=== PATIENT | male | born 1970 | race Hispanic/Latino ===

== ENCOUNTER 2021-04-12 15:08 | Inpatient (IN) | payer OTHER, SELFPAY ==
[~2021-04-12 15:08] MED LIST: Iopamidol-370 76% 500 ML 1 ML ONE
[2021-04-12 15:57] LABS: #Basophils 0.1 thou/uL (0.0-0.2); #Lymphocytes 1.4 thou/uL (1.20-3.40); #Monocytes 1.3 thou/uL (0.11-0.59); #Neutrophils 10.3 thou/uL (1.40-6.50); %Basophils 0.6 % (0.0-1.0); %Eosinophils 0.2 % (0.0-10.0); %Lymphocytes 10.6 % (21.0-51.0); %Monocytes 10.1 % (0.0-10.0); %Neutrophils 78.5 % (42.0-75.0); Hemoglobin 15.3 g/dL (14.0-18.0); Mean Corpuscular HGB CONC 34.4 g/dL (32.0-36.0); Mean Platelet Volume 7.8 fL (7.4-10.4); Platelet Count 242 thou/uL (130-400); RBC Distribution Width 11.9 % (11.5-14.5); Red Blood Cell (RBC) Count 4.93 mill/uL (4.70-6.10); White Blood Cell (WBC) Count 13.1 thou/uL (4.8-10.8)
[2021-04-12 16:18] LABS: ALT (SGPT) 26 U/L (8-55); AST (SGOT) 16 U/L (5-34); Albumin 3.9 g/dL (3.5-5.0); Alkaline Phosphatase 83 U/L (40-110); Anion Gap 16 mmol/L (10-20); BUN (Urea Nitrogen) 15 mg/dL (8.4-25.7); Bilirubin, Total 2.1 mg/dL (0.2-1.2); Calc. Creatinine Clearance 0 mL/min (70-130); Calcium 9.1 mg/dL (7.8-10.44); Carbon Dioxide 25 mmol/L (22-29); Chloride 88 mmol/L (98-107); Globulin 3.7 g/dL (2.4-3.5); Glucose 364 mg/dL (70-105); Potassium 3.6 mmol/L (3.5-5.1); Protein, Total 7.6 g/dL (6.0-8.3); Sodium 125 mmol/L (136-145)
[2021-04-12] MEDS ORDERED: Piperacillin/Tazobactam 3.375 GM VIAL ONE (16:25)
[2021-04-12] MEDS ORDERED: Vancomycin 1 GM/200 ML BAG ONE (18:10)
[2021-04-12 18:28] LABS: Bilirubin Negative (Negative); Blood, Urine Small (Negative); Glucose, Urine (Dipstick) 500 mg/dL (Negative); Ketone, Urine Negative (Negative); Leukocyte Negative (Negative); Nitrite Negative (Negative); Protein, Urine (Dipstick) Negative (Neg-Trace)
[2021-04-12 18:30] LABS: Clarity Clear (Clear)
[2021-04-12 18:31] LABS: Specific Gravity, Urine 1.052 (1.002-1.036)
[2021-04-12 18:32] LABS: Bacteria/HPF None Seen HPF (None Seen); RBC/HPF 0-3 HPF (0-3); Squamous Epithelial None Seen HPF (0-3); WBC/HPF 0-3 HPF (0-3)
[2021-04-12 19:27] LABS: Lactic Acid 1.3 mmol/L (0.5-2.2)
[2021-04-12] MEDS ORDERED: Acetaminophen 500 MG TAB ONE (19:40)
[2021-04-12] MEDS ORDERED: Dextrose 50% Abboject 50 ML SYRINGE SLOW IVP PRN (23:42)
[2021-04-12] MEDS ORDERED: Dextrose 5% in Water 1,000 ML IV PRN (23:42)
[2021-04-13 00:17] VITALS: BMI 36.1
[2021-04-13] MEDS: HumaLOG 300 UNITS/3 ML VIAL SC PRN ×5 (01:17→22:00)
[2021-04-13] MEDS ORDERED: Ondansetron ODT 4 MG TAB PO PRN (02:57)
[2021-04-13] MEDS ORDERED: HYDROcodone/Acetaminophen 5/325 mg Tablet PO PRN (02:57)
[2021-04-13] MEDS ORDERED: Ondansetron PF 4 MG/2 ML Vial IVP PRN (02:57)
[2021-04-13] MEDS ORDERED: Morphine 2 MG/ML VIAL SLOW IVP PRN (03:01)
[2021-04-13] MEDS: Sodium Chloride 0.9% 1,000 ML IV SCH ×3 (03:46→23:08)
[2021-04-13] MEDS: Piperacillin/Tazobactam 4.5 GM in Sodium Chloride 0.9% 100 ML IVPB SCH ×3 (03:47→22:24)
[2021-04-13] MEDS: Vancomycin 1.5 GRAM/300 ML BAG 1.5 GM in Premix Bag 1 BAG IVPB SCH ×2 (05:00→17:35)
[2021-04-13 05:54] LABS: #Eosinphils 0.1 thou/uL (0.0-0.7); #Lymphocytes 1.7 thou/uL (1.20-3.40); #Monocytes 1.8 thou/uL (0.11-0.59); #Neutrophils 10.3 thou/uL (1.40-6.50); %Basophils 0.2 % (0.0-1.0); %Eosinophils 0.8 % (0.0-10.0); %Lymphocytes 12.1 % (21.0-51.0); %Monocytes 12.7 % (0.0-10.0); %Neutrophils 74.2 % (42.0-75.0); Hemoglobin 13.9 g/dL (14.0-18.0); Mean Corpuscular HGB CONC 33.7 g/dL (32.0-36.0); Mean Corpuscular Hemoglobin 30.6 pg (27.0-31.0); Mean Corpuscular Volume 91.1 fL (78.0-98.0); Mean Platelet Volume 7.9 fL (7.4-10.4); Platelet Count 243 thou/uL (130-400); RBC Distribution Width 11.9 % (11.5-14.5); Red Blood Cell (RBC) Count 4.53 mill/uL (4.70-6.10); White Blood Cell (WBC) Count 13.9 thou/uL (4.8-10.8)
[2021-04-13 06:19] LABS: Anion Gap 12 mmol/L (10-20); BUN (Urea Nitrogen) 11 mg/dL (8.4-25.7); Calc. Creatinine Clearance 131 mL/min (70-130); Calcium 8.6 mg/dL (7.8-10.44); Carbon Dioxide 24 mmol/L (22-29); Chloride 96 mmol/L (98-107); Glucose 316 mg/dL (70-105); Potassium 4.1 mmol/L (3.5-5.1); Sodium 128 mmol/L (136-145)
[2021-04-13] MEDS ORDERED: Lidocaine 1% w/Epinephrine 1:100K 20 ML VIAL ONE (08:38)
[2021-04-13] MEDS ORDERED: Iopamidol 370 76% 100 ML VIAL ONE (10:14)
[2021-04-13 10:38] LABS: SARS-CoV-2 NAA Rapid Test DETECTED (NotDetected)
[2021-04-13] MEDS ORDERED: Piperacillin/Tazobactam 4.5 GM in Sodium Chloride 0.9% 100 ML IVPB SCH (20:00)
[2021-04-13] MEDS ORDERED: HumaLOG 300 UNITS/3 ML VIAL SC PRN (20:54)
[2021-04-14] MEDS: Piperacillin/Tazobactam 4.5 GM in Sodium Chloride 0.9% 100 ML IVPB SCH ×3 (05:08→21:34)
[2021-04-14] MEDS: Sodium Chloride 0.9% 1,000 ML IV SCH ×2 (05:15→18:35)
[2021-04-14] MEDS: Acetaminophen 325 MG TAB PO PRN ×2 (05:28→21:44)
[2021-04-14] MEDS: HumaLOG 300 UNITS/3 ML VIAL SC PRN ×3 (05:29→17:00)
[2021-04-14] MEDS: Vancomycin 1.5 GRAM/300 ML BAG 1.5 GM in Premix Bag 1 BAG IVPB SCH ×4 (06:38→23:05)
[2021-04-14] MEDS ORDERED: metFORMIN 500 MG TAB PO SCH (09:00)
[2021-04-14] MEDS: metFORMIN 500 MG TAB PO SCH (21:35)
[2021-04-15] MEDS: Piperacillin/Tazobactam 4.5 GM in Sodium Chloride 0.9% 100 ML IVPB SCH ×3 (05:37→22:18)
[2021-04-15] MEDS: Sodium Chloride 0.9% 1,000 ML IV SCH ×2 (05:38→16:41)
[2021-04-15] MEDS: HumaLOG 300 UNITS/3 ML VIAL SC PRN ×3 (05:38→16:38)
[2021-04-15 07:08] LABS: #Basophils 0.1 thou/uL (0.0-0.2); #Eosinphils 0.4 thou/uL (0.0-0.7); #Lymphocytes 1.5 thou/uL (1.20-3.40); #Monocytes 0.8 thou/uL (0.11-0.59); #Neutrophils 5.3 thou/uL (1.40-6.50); %Eosinophils 4.4 % (0.0-10.0); %Lymphocytes 18.7 % (21.0-51.0); %Monocytes 9.5 % (0.0-10.0); %Neutrophils 66.4 % (42.0-75.0); Hemoglobin 13.9 g/dL (14.0-18.0); Mean Corpuscular HGB CONC 34.4 g/dL (32.0-36.0); Mean Corpuscular Hemoglobin 31.8 pg (27.0-31.0); Mean Corpuscular Volume 92.4 fL (78.0-98.0); Mean Platelet Volume 7.8 fL (7.4-10.4); Platelet Count 271 thou/uL (130-400); Red Blood Cell (RBC) Count 4.37 mill/uL (4.70-6.10)
[2021-04-15 07:24] LABS: Vancomycin, Trough 15.3 ug/mL
[2021-04-15 07:27] LABS: Anion Gap 11 mmol/L (10-20); BUN (Urea Nitrogen) 8 mg/dL (8.4-25.7); Calc. Creatinine Clearance 151 mL/min (70-130); Calcium 8.6 mg/dL (7.8-10.44); Carbon Dioxide 22 mmol/L (22-29); Chloride 103 mmol/L (98-107); Glucose 269 mg/dL (70-105); Potassium 3.6 mmol/L (3.5-5.1); Sodium 132 mmol/L (136-145)
[2021-04-15] MEDS: Vancomycin 1.5 GRAM/300 ML BAG 1.5 GM in Premix Bag 1 BAG IVPB SCH ×3 (08:06→23:31)
[2021-04-15] MEDS: metFORMIN 500 MG TAB PO SCH ×2 (08:06→20:50)
[2021-04-15] MEDS: Enoxaparin Sodium 40 MG/0.4 ML SYRINGE SC SCH (08:07)
[2021-04-15] MEDS ORDERED: EPINEPHrine 1 MG/ML AMP ONE (17:30)
[2021-04-15] MEDS ORDERED: Bupivacaine 0.25% HCL 30 ML VIAL ONE (17:30)
[2021-04-15] MEDS ORDERED: Lidocaine 1% w/Epinephrine 1:100K 20 ML VIAL ONE (17:30)
[2021-04-16] MEDS: Sodium Chloride 0.9% 1,000 ML IV SCH ×2 (01:52→11:53)
[2021-04-16] MEDS: Piperacillin/Tazobactam 4.5 GM in Sodium Chloride 0.9% 100 ML IVPB SCH ×2 (05:16→14:18)
[2021-04-16] MEDS: HumaLOG 300 UNITS/3 ML VIAL SC PRN ×3 (05:16→16:14)
[2021-04-16 06:40] LABS: Hemoglobin 13.5 g/dL (14.0-18.0); Mean Corpuscular HGB CONC 33.8 g/dL (32.0-36.0); Mean Corpuscular Hemoglobin 30.9 pg (27.0-31.0); Mean Corpuscular Volume 91.5 fL (78.0-98.0); Mean Platelet Volume 7.6 fL (7.4-10.4); Platelet Count 313 thou/uL (130-400); RBC Distribution Width 11.9 % (11.5-14.5); Red Blood Cell (RBC) Count 4.38 mill/uL (4.70-6.10)
[2021-04-16] MEDS: Enoxaparin Sodium 40 MG/0.4 ML SYRINGE SC SCH (08:25)
[2021-04-16] MEDS: Vancomycin 1.5 GRAM/300 ML BAG 1.5 GM in Premix Bag 1 BAG IVPB SCH ×2 (08:25→16:14)
[2021-04-16] MEDS: metFORMIN 500 MG TAB PO SCH (08:25)
[2021-04-16] MEDS: Acetaminophen 325 MG TAB PO PRN (16:27)
[2021-04-16 20:44] VITALS: BP 151/77; TEMP 98
== END 2021-04-16 19:30 | disposition home or self-care (01) | DRG 853 ==
LOC: ERS 15:08 → SURG B 22:38 → T4-A 04-13 15:50
PROVIDERS: ADMIT Student in an Organized Health Care Education/Training Program; ATTEND Internal Medicine
PROC: 0J990ZZ Drainage of Buttock Subcutaneous Tissue and Fascia, Open Approach (ICD-10-PCS; principal; 2021-04-13)
DX: A41.9 Sepsis, unspecified organism (principal); U07.1 COVID-19; L02.31 Cutaneous abscess of buttock; L03.317 Cellulitis of buttock; E87.1 Hypo-osmolality and hyponatremia; E11.628 Type 2 diabetes mellitus with other skin complications; I10 Essential (primary) hypertension; E66.01 Morbid (severe) obesity due to excess calories; D35.00 Benign neoplasm of unspecified adrenal gland; K76.0 Fatty (change of) liver, not elsewhere classified; E78.5 Hyperlipidemia, unspecified; Z79.84 Long term (current) use of oral hypoglycemic drugs; Z68.36 Body mass index [BMI] 36.0-36.9, adult
CPT/HCPCS: 36415; 36416; 74170; 74177; 80048; 80053; 80202; 81003; 81015; 82274; 83036; 83605; 85025; 85027; 87040; 87070; 87077; 87149; 87186; 87205; 93005; 96365; 96367; J0171; J1650; J1815; J2543; J3370; J3490; Q9967; S0020; U0002; U0005